=== PATIENT | female | born 1995 | race Hispanic/Latino ===

== ENCOUNTER 2018-02-01 10:55 | Emergency (ER) | payer MEDICAID ==
[2018-02-01] MEDS ORDERED: ONDANSETRON ODT 4 MG TAB ONE (11:09)
[2018-02-01 11:30] LABS: BASOPHILS % (AUTO) 0.3 % (0.0-5.0); EOSINOPHILS % (AUTO) 0.3 % (0.0-8.0); HEMATOCRIT 37.5 % (36-48); LYMPHOCYTES % (AUTO) 12.5 % (21.0-51.0); MEAN CORPUSCULAR HGB CONC 33.4 g/dL (32.0-36.0); MEAN CORPUSCULAR VOLUME 80.8 fL (79-99); MONOCYTES % (AUTO) 3.3 % (3.0-13.0); NEUTROPHILS % (AUTO) 83.6 % (40.0-77.0); PLATELET COUNT (AUTO) 283 K/uL (130-400); RED BLOOD CELL COUNT(AUTO) 4.64 MIL/uL (4.00-5.50); RED CELL DISTRIBUTION WIDTH 15.5 % (11.0-15.5); WHITE BLOOD COUNT (AUTO) 14.4 K/uL (4.8-10.8)
[2018-02-01 11:38] LABS: CREATININE 0.6 mg/dL (0.5-1.5); POTASSIUM 4.4 mmol/L (3.5-5.1)
[2018-02-01 11:43] LABS: ALBUMIN 3.2 g/dL (3.5-5.0); BILIRUBIN,TOTAL 0.4 mg/dL (0.2-1.0); TOTAL PROTEIN, SERUM 7.1 g/dL (6.0-8.3)
[2018-02-01 11:49] LABS: APPEARANCE,URINE Clear (CLEAR); BILIRUBIN,URINE Negative (NEGATIVE); COLOR,URINE Yellow (YELLOW); GLUCOSE, URINE (UA) Negative (NEGATIVE); KETONES,URINE Trace mg/dL (NEGATIVE); LEUKOCYTE ESTERASE ,URINE Trace (NEGATIVE); NITRATE,URINE Negative (NEGATIVE); OCCULT BLOOD,URINE Negative (NEGATIVE); PH,URINE 6.5 (5.0-8.0); PROTEIN,URINE Negative (NEGATIVE)
[2018-02-01 12:02] LABS: HCG,QUAL RESULT NEGATIVE (NEGATIVE); RBC,URINE 0-1 /HPF (0-1)
[2018-02-01 12:03] LABS: BACTERIA,URINE Rare /HPF (None Seen); SQUAMOUS EPITHELIAL CELL,UR Few /HPF (0-2); WBC,URINE 0-1 /HPF (0-1)
== END 2018-02-01 13:52 | disposition home or self-care (01) ==
LOC: EDH 10:55
DX: R35.0 Frequency of micturition (principal); N39.0 Urinary tract infection, site not specified
CPT/HCPCS: 36415; 76705; 80053; 81001; 81025; 83690; 85025

== ENCOUNTER 2018-05-13 21:50 | Emergency (ER) | payer MEDICAID ==
[2018-05-13 22:25] LABS: BASOPHILS % (AUTO) 0.7 % (0.0-5.0); EOSINOPHILS % (AUTO) 0.6 % (0.0-8.0); HEMATOCRIT 42.2 % (36-48); LYMPHOCYTES % (AUTO) 22.6 % (21.0-51.0); MEAN CORPUSCULAR HEMOGLOBIN 25.9 pg (27.0-33.0); MEAN CORPUSCULAR VOLUME 80.9 fL (79-99); MONOCYTES % (AUTO) 5.5 % (3.0-13.0); NEUTROPHILS % (AUTO) 70.6 % (40.0-77.0); PLATELET COUNT (AUTO) 264 K/uL (130-400); RED BLOOD CELL COUNT(AUTO) 5.21 MIL/uL (4.00-5.50); RED CELL DISTRIBUTION WIDTH 15.3 % (11.0-15.5); WHITE BLOOD COUNT (AUTO) 14.8 K/uL (4.8-10.8)
[2018-05-13 22:28] LABS: APPEARANCE,URINE Clear (CLEAR); BILIRUBIN,URINE Negative (NEGATIVE); COLOR,URINE Yellow (YELLOW); GLUCOSE, URINE (UA) Negative (NEGATIVE); KETONES,URINE Negative (NEGATIVE); LEUKOCYTE ESTERASE ,URINE Negative (NEGATIVE); NITRATE,URINE Negative (NEGATIVE); OCCULT BLOOD,URINE Negative (NEGATIVE); PROTEIN,URINE Negative (NEGATIVE)
[2018-05-13 22:32] LABS: HCG,QUAL RESULT NEGATIVE (NEGATIVE)
[2018-05-13 22:35] LABS: CREATININE 0.7 mg/dL (0.5-1.5)
[2018-05-13 22:41] LABS: ALBUMIN 2.9 g/dL (3.5-5.0); BILIRUBIN,TOTAL 0.2 mg/dL (0.2-1.0); TOTAL PROTEIN, SERUM 6.3 g/dL (6.0-8.3)
[2018-05-13] MEDS ORDERED: DiphenhydrAMINE HCL 50 MG/ML VIAL ONE (23:06)
[2018-05-13] MEDS ORDERED: METOCLOPRAMIDE 10 MG/2 ML VIAL ONE (23:06)
[2018-05-13] MEDS ORDERED: SODIUM CHLORIDE 0.9% 50 ML IV ONE (23:06)
[2018-05-13] MEDS ORDERED: ONDANSETRON HCL 4 MG/2 ML VIAL ONE (23:06)
== END 2018-05-13 23:25 | disposition home or self-care (01) ==
LOC: EDH 21:50
DX: K59.00 Constipation, unspecified (principal); Z98.890 Other specified postprocedural states; Z79.899 Other long term (current) drug therapy
CPT/HCPCS: 36415; 80053; 81003; 81025; 82150; 83690; 85025; 96374; 96375; 99284; J1200; J2405; J2765

== ENCOUNTER 2018-05-31 22:43 | Emergency (ER) | payer MEDICAID ==
[2018-05-31] MEDS ORDERED: PROCHLORPERAZINE EDISYLATE 10 MG/2 ML VIAL ONE (23:11)
[2018-05-31] MEDS ORDERED: ONDANSETRON HCL 4 MG/2 ML VIAL ONE (23:11)
[2018-05-31] MEDS ORDERED: SODIUM CHLORIDE 0.9% 1000ML 1,000 ML IV ONE (23:11)
[2018-05-31 23:17] LABS: APPEARANCE,URINE Clear (CLEAR); BILIRUBIN,URINE Negative (NEGATIVE); COLOR,URINE Yellow (YELLOW); GLUCOSE, URINE (UA) Negative (NEGATIVE); KETONES,URINE 15 mg/dL (NEGATIVE); LEUKOCYTE ESTERASE ,URINE Small (NEGATIVE); NITRATE,URINE Negative (NEGATIVE); OCCULT BLOOD,URINE Negative (NEGATIVE); PROTEIN,URINE Negative (NEGATIVE)
[2018-05-31 23:26] LABS: BACTERIA,URINE Moderate /HPF (None Seen); MUCUS,URINE Rare LPF (None Seen); RBC,URINE 0-1 /HPF (0-1)
== END 2018-06-01 00:44 | disposition home or self-care (01) ==
LOC: EDH 22:43
DX: G43.909 Migraine, unspecified, not intractable, without status migrainosus (principal); K21.9 Gastro-esophageal reflux disease without esophagitis
CPT/HCPCS: 81001; 96374; 96375; 99284; J0780; J2405; J7030

== ENCOUNTER 2018-08-08 14:36 | Emergency (ER) | payer MEDICAID ==
[2018-08-08] MEDS ORDERED: FAMOTIDINE 20MG TAB 20 MG TAB ONE (16:53)
[2018-08-08] MEDS ORDERED: PREDNISONE 20 MG TABLET ONE (16:54)
[2018-08-08] MEDS ORDERED: DIPHENHYDRAMINE HCL 25 MG CAPSULE ONE (16:54)
== END 2018-08-08 17:22 | disposition home or self-care (01) ==
LOC: EDH 14:36
DX: L50.0 Allergic urticaria (principal); M79.89 Other specified soft tissue disorders; K21.9 Gastro-esophageal reflux disease without esophagitis; F41.9 Anxiety disorder, unspecified; G43.909 Migraine, unspecified, not intractable, without status migrainosus
CPT/HCPCS: 99284; Q0163

== ENCOUNTER 2018-12-05 14:51 | Emergency (ER) | payer MEDICAID, OTHER ==
[2018-12-05] MEDS ORDERED: ACETAMINOPHEN 325 MG TAB ONE (15:07)
[2018-12-05] MEDS ORDERED: TETANUS/DIPHTHERIA TOXOID [ADULT] 0.5 ML VIAL IM ONE (15:08)
== END 2018-12-05 15:43 | disposition home or self-care (01) ==
LOC: EDH 14:51
DX: S60.811A Abrasion of right wrist, initial encounter (principal); G43.909 Migraine, unspecified, not intractable, without status migrainosus; K21.9 Gastro-esophageal reflux disease without esophagitis; F41.9 Anxiety disorder, unspecified; W22.8XXA Striking against or struck by other objects, initial encounter; Y93.89 Activity, other specified; Y92.098 Other place in other non-institutional residence as the place of occurrence of the external cause; Y99.8 Other external cause status
CPT/HCPCS: 73110; 90471; 90714

== ENCOUNTER 2019-07-16 09:21 | Emergency (ER) | payer MEDICAID ==
[2019-07-16 09:54] LABS: BASOPHILS % (AUTO) 0.4 % (0.0-5.0); EOSINOPHILS % (AUTO) 0.6 % (0.0-8.0); LYMPHOCYTES % (AUTO) 15.6 % (21.0-51.0); MEAN CORPUSCULAR HEMOGLOBIN 28.4 pg (27.0-33.0); MEAN CORPUSCULAR HGB CONC 33.5 g/dL (32.0-36.0); MEAN CORPUSCULAR VOLUME 84.8 fL (79-99); MONOCYTES % (AUTO) 4.8 % (3.0-13.0); NEUTROPHILS % (AUTO) 78.6 % (40.0-77.0); PLATELET COUNT (AUTO) 260 K/uL (130-400); RED BLOOD CELL COUNT(AUTO) 4.25 MIL/uL (4.00-5.50); RED CELL DISTRIBUTION WIDTH 14.8 % (11.0-15.5)
[2019-07-16 10:17] LABS: APPEARANCE,URINE Clear (CLEAR); BILIRUBIN,URINE Negative (NEGATIVE); COLOR,URINE Yellow (YELLOW); GLUCOSE, URINE (UA) Negative (NEGATIVE); KETONES,URINE Trace mg/dL (NEGATIVE); LEUKOCYTE ESTERASE ,URINE Negative (NEGATIVE); NITRATE,URINE Negative (NEGATIVE); OCCULT BLOOD,URINE Large (NEGATIVE); PROTEIN,URINE Negative (NEGATIVE)
[2019-07-16 10:46] LABS: BACTERIA,URINE Rare /HPF (None Seen); RBC,URINE 0-1 /HPF (0-1); SQUAMOUS EPITHELIAL CELL,UR Few /HPF (0-2); WBC,URINE 0-1 /HPF (0-1)
== END 2019-07-16 11:11 | disposition home or self-care (01) ==
LOC: EDH 09:21
DX: O20.0 Threatened abortion (principal); Z3A.16 16 weeks gestation of pregnancy
CPT/HCPCS: 36415; 81001; 85025; 86900; 86901

== ENCOUNTER 2019-12-07 11:28 | Inpatient (IN) | payer MEDICAID ==
[2019-12-07] VITALS (9 sets, daily range): BP systolic 114–127; BP diastolic 57–73
[~2019-12-07] VITALS: Ht 160 cm; Wt 129.3 kg
[2019-12-07] MEDS ORDERED: CEFAZOLIN SODIUM 1 GM VIAL IVP PRN (12:15)
[2019-12-07] MEDS ORDERED: CITRIC ACID/SODIUM CITRATE 30 ML UDCUP PO PRN (12:15)
[2019-12-07] MEDS ORDERED: CALDOLOR 800MG+NS 250ML 250 ML IV PRN (12:15)
[2019-12-07] MEDS ORDERED: LACTATED RINGERS 1000ML 1,000 ML IV SCH ×2 (12:15→13:19)
[2019-12-07 12:43] LABS: HEMATOCRIT 36.5 % (36-48); MEAN CORPUSCULAR HGB CONC 32.6 g/dL (32.0-36.0); MEAN CORPUSCULAR VOLUME 88.8 fL (79-99); RED BLOOD CELL COUNT(AUTO) 4.11 MIL/uL (4.00-5.50); RED CELL DISTRIBUTION WIDTH 14.5 % (11.0-15.5); WHITE BLOOD COUNT (AUTO) 11.8 K/uL (4.8-10.8)
[2019-12-07 12:54] LABS: CREATININE 0.7 mg/dL (0.5-1.5); INR 0.84 (0.85-1.15); PARTIAL THROMBOPLASTIN TIME 23.9 SEC (26.3-35.5); POTASSIUM 3.9 mmol/L (3.5-5.1); PROTHROMBIN TIME 9.1 SEC (9.6-11.6)
[2019-12-07 12:59] LABS: ALBUMIN 2.5 g/dL (3.5-5.0); BILIRUBIN,TOTAL 0.1 mg/dL (0.2-1.0); TOTAL PROTEIN, SERUM 6.4 g/dL (6.0-8.3); URIC ACID 6.7 mg/dL (2.6-7.2)
[2019-12-07] MEDS ORDERED: MAGNESIUM SULFATE 1,000 ML IV PRN ×2 (13:19→17:21)
[2019-12-07] MEDS ORDERED: CALCIUM GLUCONATE 1 GM/10 ML VIAL IV PRN ×2 (13:30→17:30)
[2019-12-07] MEDS ORDERED: MAGNESIUM 4GM PREMIX 100ML 100 ML IV PRN ×2 (13:30→17:30)
[2019-12-07 14:28] LABS: APPEARANCE,URINE Clear (CLEAR); BILIRUBIN,URINE Negative (NEGATIVE); COLOR,URINE Yellow (YELLOW); GLUCOSE, URINE (UA) Negative (NEGATIVE); KETONES,URINE Negative (NEGATIVE); LEUKOCYTE ESTERASE ,URINE Negative (NEGATIVE); NITRATE,URINE Negative (NEGATIVE); OCCULT BLOOD,URINE Negative (NEGATIVE); PH,URINE 6.5 (5.0-8.0); PROTEIN,URINE Trace mg/dL (NEGATIVE); UROBILINOGEN,URINE 0.2 mg/dL (0.2-1.0)
[2019-12-07 14:35] LABS: RBC,URINE 0-1 /HPF (0-1)
[2019-12-07 14:43] LABS: BACTERIA,URINE Few /HPF (None Seen)
[2019-12-07 14:44] LABS: MUCUS,URINE Few LPF (None Seen); SQUAMOUS EPITHELIAL CELL,UR Few /HPF (0-2)
[2019-12-07] MEDS ORDERED: OXYTOCIN 10 USP UNITS/ML ONE (15:25)
[2019-12-07] MEDS ORDERED: DURAMORPH PF1 MG/ML 10ML AMP IV ONE (15:26)
[2019-12-07] MEDS ORDERED: EPINEPHRINE 1 MG/ML AMPULE ONE (15:26)
[2019-12-07] MEDS ORDERED: PROPOFOL 10 MG/ML 20ML VIAL IV ONE (15:32)
[2019-12-07] MEDS ORDERED: CEFAZOLIN SODIUM 1 GM VIAL IVP ONE (16:18)
[2019-12-07] MEDS ORDERED: EPHEDRINE SULFATE 50 MG/ML AMPULE ONE (16:28)
[2019-12-07] MEDS ORDERED: GLYCOPYRROLATE 1 MG/5 ML SYRINGE ONE (16:33)
[2019-12-07] MEDS: LACTATED RINGERS 1000ML 1,000 ML IV SCH (17:21)
[2019-12-07] MEDS ORDERED: ONDANSETRON HCL 4 MG/2 ML VIAL ONE (17:27)
[2019-12-07] MEDS ORDERED: OXYTOCIN 10 USP UNITS/ML IV PRN (17:30)
[2019-12-07] MEDS ORDERED: PROMETHAZINE HCL 25 MG/ML 1ML AMPULE IM PRN (17:30)
[2019-12-07] MEDS ORDERED: MEPERIDINE-PF 75 MG/ML SYG IM PRN (17:30)
[2019-12-07] MEDS ORDERED: OXYTOCIN-LR 20 UNITS/1000 ML 1,000 ML IV PRN (17:30)
[2019-12-07] MEDS ORDERED: SODIUM CHLORIDE 0.9% 10 ML VIAL IVP PRN (17:30)
[2019-12-07] MEDS ORDERED: DEXTROSE 5 %-0.45 % NACL 1,000 ML IV PRN (17:30)
[2019-12-07] MEDS ORDERED: EPHEDRINE SULFATE 50 MG/ML AMPULE IVP PRN (18:45)
[2019-12-07] MEDS ORDERED: ONDANSETRON HCL 4 MG/2 ML VIAL IVP PRN (18:45)
[2019-12-07] MEDS ORDERED: DiphenhydrAMINE HCL 50 MG/ML VIAL IVP PRN (18:45)
[2019-12-07] MEDS ORDERED: NALOXONE HCL 0.4 MG/1 ML ML IVP PRN ×3 (18:45)
[2019-12-08] VITALS (25 sets, daily range): BP systolic 111–132; BP diastolic 58–92
[2019-12-08] MEDS: CALDOLOR 800MG+NS 250ML 250 ML IV SCH ×2 (01:26→09:24)
[2019-12-08] MEDS ORDERED: PREN-154 PO (03:27)
[2019-12-08] MEDS: LACTATED RINGERS 1000ML 1,000 ML IV SCH (05:00)
[2019-12-08 06:30] LABS: HEMATOCRIT 32.2 % (36-48); MEAN CORPUSCULAR HEMOGLOBIN 28.8 pg (27.0-33.0); MEAN CORPUSCULAR HGB CONC 32.3 g/dL (32.0-36.0); MEAN CORPUSCULAR VOLUME 89.2 fL (79-99); RED BLOOD CELL COUNT(AUTO) 3.61 MIL/uL (4.00-5.50); RED CELL DISTRIBUTION WIDTH 14.7 % (11.0-15.5); WHITE BLOOD COUNT (AUTO) 12.1 K/uL (4.8-10.8)
[2019-12-08] MEDS ORDERED: MEPERIDINE-PF 100 MG/ML SYG ONE (08:07)
[2019-12-08 08:10] LABS: HEPATITIS Bs ANTIGEN SCREEN P Negative (Negative)
--- NOTE | 2019-12-08 09:45 | NUR ---
magnesium sulfate discontinued as per MD order, hodges catheter removed, tip intact, pericare done, incisional dressing removed, applied telfa dressing, informed to call for assistance to the bathroom, pt voiced understanding. Addendum: 12/08/19 at 1106 by MARA GERBER RN Amended: Links added.
[2019-12-08] MEDS ORDERED: IBUPROFEN 600 MG TABLET PO PRN (10:15)
[2019-12-08] MEDS ORDERED: LANOLIN 30GM OINTMENT TP PRN (10:15)
[2019-12-08] MEDS ORDERED: HYDROCODONE/ACETAMINOPHEN 5/325 MG TAB PO PRN (10:15)
[2019-12-08] MEDS ORDERED: ACETAMINOPHEN EXTRA STRENGTH 500 MG TABLET PO PRN (10:15)
[2019-12-08] MEDS ORDERED: BISACODYL 10 MG SUPP.RECT RC PRN (10:15)
--- NOTE | 2019-12-08 13:15 | NUR ---
assisted to the bathroom, voided 500ml, pericare done, assisted to bedside chair. pt tolerated well Addendum: 12/08/19 at 1516 by MARA GERBER RN Amended: Links added.
[2019-12-08] MEDS: SIMETHICONE 80 MG TAB.CHEW PO PRN ×2 (14:53→21:03)
[2019-12-08] MEDS: ACETAMINOPHEN-CODEINE 300/30MG TAB PO PRN ×2 (14:53→21:04)
[2019-12-08] MEDS: DIPH,PERTUSS(ACELL),TET VAC/PF 0.5 ML VIAL IM SCH (16:57)
[2019-12-08] MEDS: IBUPROFEN 800 MG TAB PO SCH (17:40)
[2019-12-08] MEDS: DOCUSATE SODIUM 100 MG CAP PO SCH (21:03)
[2019-12-09] MEDS: IBUPROFEN 800 MG TAB PO SCH ×2 (01:29→08:48)
[2019-12-09 04:09] VITALS: BP 121/67
[2019-12-09] MEDS: ACETAMINOPHEN-CODEINE 300/30MG TAB PO PRN ×2 (06:45→15:06)
[2019-12-09 07:36] VITALS: BP 137/70
--- NOTE | 2019-12-09 07:45 | NUR ---
PATIENT ASSESSED AND INCISION IS OPEN TO AIR WITH INSORB. DENIES PAIN AND HAS DTRS OF 1+ ARMS AND 1+ LEGS AND NO CLONUS. DENIES ANY SIGNS AND SYMPTOMS OF ECLAMPSIA.
[2019-12-09] MEDS: SIMETHICONE 80 MG TAB.CHEW PO PRN ×2 (08:48→15:05)
[2019-12-09] MEDS: DOCUSATE SODIUM 100 MG CAP PO SCH (08:48)
[2019-12-09] MEDS: DIPH,PERTUSS(ACELL),TET VAC/PF 0.5 ML VIAL IM SCH (10:15)
--- NOTE | 2019-12-09 10:30 | NUR ---
DR. POLLACK ROUNDED AND DISCHARGE ORDER GIVEN FOR PATIENT. PATIENT IS STABLE AND DENIES ANY PROBLEMS. SIGNS AND SYMPTOMS FOR ER GIVEN AND PATEINT VERBALIZED UNDERSTANDING INSTRUCTIONS GIVEN.
[2019-12-09 11:20] VITALS: BP 126/88
--- NOTE | 2019-12-09 12:33 | NUR ---
LEVEL II- 35 weeks Sw met with pt and mother Christi Luevano [phone]. Pt reports this is 4 child with her BF Huseyin Pedroza ([phone], no cell#. Couple's kids are 6,4,3, and NB Lupe Pedroza. Pt states baby came earlier than expected but they have basic items including a car seat of NB. HPA will follow baby after dc and pt will have help from family at de. Pt has medicaid and food stamp assistance and will apply for WIC at de. Pt states [place] come [place] [facility] [place] baby ready for dc. Sw educated on Jamil Hernandez and pt states plan is to go home and come to see baby.
--- NOTE | 2019-12-09 15:00 | NUR ---
DISCHARGE INSTRUCTIONS GIVEN AND PT VERBALIZED UNDERSTANDING INSTRUCTIONS GIVEN. MEDICATION REVIEWED AND DOSAGE AND FREQUENCY REVIEWED AND INSTRUCTED WHEN NEXT DOSAGE IS DUE.
--- NOTE | 2019-12-09 16:10 | NUR ---
PATIENT WAS TAKEN VIA W/C TO FAMILY VEHICLE AND WAS DISCHARGED TO HOME. PATIENT CARRIED IN ARMS AND PATIENT DENIES PAIN AFTER MEDICATED WITH TYLENOL #3 PRIOR TO DISCHARE.
== END 2019-12-09 16:10 | disposition home or self-care (01) | DRG 539 ==
LOC: LDH 11:28 → WSH 20:19
PROVIDERS: ADMIT Obstetrics & Gynecology; ATTEND Obstetrics & Gynecology
PROC: 0UB70ZZ Excision of Bilateral Fallopian Tubes, Open Approach (ICD-10-PCS; 2019-12-07)
PROC: 10D00Z1 Extraction of Products of Conception, Low, Open Approach (ICD-10-PCS; principal; 2019-12-07 16:15)
PROC: 3E0234Z Introduction of Serum, Toxoid and Vaccine into Muscle, Percutaneous Approach (ICD-10-PCS; 2019-12-08)
DX: O14.04 Mild to moderate pre-eclampsia, complicating childbirth (principal); O60.14X0 Preterm labor third trimester with preterm delivery third trimester, not applicable or unspecified; E66.9 Obesity, unspecified; K66.0 Peritoneal adhesions (postprocedural) (postinfection); O99.214 Obesity complicating childbirth; O34.211 Maternal care for low transverse scar from previous cesarean delivery; Z30.2 Encounter for sterilization; Z3A.36 36 weeks gestation of pregnancy; Z37.0 Single live birth; O99.62 Diseases of the digestive system complicating childbirth; Z23 Encounter for immunization; O24.420 Gestational diabetes mellitus in childbirth, diet controlled
CPT/HCPCS: 36415; 59510; 80053; 81001; 84550; 85027; 85384; 85610; 85730; 86592; 86701; 86850; 86900; 86901; 87340; 87390; 88302; 90715; A4344; G0378; J0171; J0690; J1741; J2175; J2274; J2405; J2550; J2590; J2704; J3475; J3490; J7120

== ENCOUNTER 2019-12-15 14:16 | Emergency (ER) | payer MEDICAID ==
[~2019-12-15 14:16] MED LIST: PREN-154 PO
[2019-12-15 15:12] LABS: BASOPHILS % (AUTO) 0.5 % (0.0-5.0); EOSINOPHILS % (AUTO) 3.1 % (0.0-8.0); HEMATOCRIT 34.7 % (36-48); LYMPHOCYTES % (AUTO) 16.3 % (21.0-51.0); MEAN CORPUSCULAR HEMOGLOBIN 28.4 pg (27.0-33.0); MEAN CORPUSCULAR VOLUME 88.7 fL (79-99); MONOCYTES % (AUTO) 5.4 % (3.0-13.0); NEUTROPHILS % (AUTO) 73.5 % (40.0-77.0); PLATELET COUNT (AUTO) 474 K/uL (130-400); RED BLOOD CELL COUNT(AUTO) 3.91 MIL/uL (4.00-5.50); RED CELL DISTRIBUTION WIDTH 14.3 % (11.0-15.5); WHITE BLOOD COUNT (AUTO) 11.8 K/uL (4.8-10.8)
[2019-12-15 15:28] LABS: CREATININE 0.6 mg/dL (0.5-1.5); POTASSIUM 4.2 mmol/L (3.5-5.1)
[2019-12-15 15:32] LABS: BILIRUBIN,TOTAL 0.2 mg/dL (0.2-1.0); MAGNESIUM 1.9 mg/dL (1.80-2.40); TOTAL PROTEIN, SERUM 7.5 g/dL (6.0-8.3)
[2019-12-15 15:44] LABS: INR 0.89 (0.85-1.15); PARTIAL THROMBOPLASTIN TIME 24.4 SEC (26.3-35.5); PROTHROMBIN TIME 9.7 SEC (9.6-11.6)
[2019-12-15 16:00] LABS: APPEARANCE,URINE CLOUDY (CLEAR); BILIRUBIN,URINE NEGATIVE (NEGATIVE); COLOR,URINE YELLOW (YELLOW); GLUCOSE, URINE (UA) NEGATIVE (NEGATIVE); KETONES,URINE NEGATIVE (NEGATIVE); LEUKOCYTE ESTERASE ,URINE SMALL (NEGATIVE); NITRATE,URINE NEGATIVE (NEGATIVE); OCCULT BLOOD,URINE LARGE (NEGATIVE); PH,URINE 7.5 (5.0-8.0); PROTEIN,URINE TRACE mg/dL (NEGATIVE); UROBILINOGEN,URINE 0.2 mg/dL (0.2-1.0)
[2019-12-15 16:10] LABS: RBC,URINE 26-50 /HPF (0-1)
[2019-12-15 16:11] LABS: BACTERIA,URINE Few /HPF (None Seen); SQUAMOUS EPITHELIAL CELL,UR Few /HPF (0-2); YEAST,URINE BUDDING Rare /HPF (None Seen)
[2019-12-15] MEDS ORDERED: METOCLOPRAMIDE 10 MG/2 ML VIAL ONE (17:15)
[2019-12-15] MEDS ORDERED: DiphenhydrAMINE HCL 50 MG/ML VIAL ONE (17:15)
[2019-12-15] MEDS ORDERED: CEPHALEXIN 500 MG CAPSULE ONE (18:16)
== END 2019-12-15 18:53 | disposition home or self-care (01) ==
LOC: EDH 14:16
DX: O86.20 Urinary tract infection following delivery, unspecified (principal); O89.4 Spinal and epidural anesthesia-induced headache during the puerperium; G43.909 Migraine, unspecified, not intractable, without status migrainosus; F41.9 Anxiety disorder, unspecified; K21.9 Gastro-esophageal reflux disease without esophagitis
CPT/HCPCS: 36415; 70450; 72125; 80053; 81001; 83735; 85025; 85610; 85730; 87088; 96374; 96375; 99285; J1200; J2765

== ENCOUNTER 2021-03-20 18:40 | Emergency (ER) | payer MEDICAID ==
[~2021-03-20] VITALS: Ht 157.5 cm; Wt 123.8 kg
[2021-03-20 18:42] VITALS: BP 143/96
== END 2021-03-20 23:40 | disposition left against medical advice (07) ==
LOC: EDH 18:40
DX: R05 Cough (principal); R53.83 Other fatigue; Z53.21 Procedure and treatment not carried out due to patient leaving prior to being seen by health care provider

== ENCOUNTER 2021-08-26 22:35 | Emergency (ER) | payer MEDICAID ==
[~2021-08-26] VITALS: Ht 157.5 cm; Wt 122.5 kg
[2021-08-27] MEDS ORDERED: IBUPROFEN 800 MG TAB PO ONE (04:00)
[2021-08-27 04:03] VITALS: BP 118/68
== END 2021-08-27 04:00 | disposition home or self-care (01) ==
LOC: EDH 22:35
DX: S67.22XA Crushing injury of left hand, initial encounter (principal); S60.222A Contusion of left hand, initial encounter; W23.0XXA Caught, crushed, jammed, or pinched between moving objects, initial encounter; Y93.89 Activity, other specified; Y92.89 Other specified places as the place of occurrence of the external cause; Y99.8 Other external cause status
CPT/HCPCS: 73130

== ENCOUNTER 2022-08-25 00:37 | Emergency (ER) | payer MEDICAID ==
[~2022-08-25] VITALS: Ht 160 cm; Wt 112.5 kg
[2022-08-25 01:07] LABS: APPEARANCE,URINE CLEAR (CLEAR); BILIRUBIN,URINE NEGATIVE (NEGATIVE); COLOR,URINE LIGHT-YELLOW (YELLOW); GLUCOSE, URINE (UA) 30 mg/dL (NEGATIVE); KETONES,URINE NEGATIVE (NEGATIVE); LEUKOCYTE ESTERASE ,URINE NEGATIVE Leu/uL (NEGATIVE); NITRATE,URINE NEGATIVE (NEGATIVE); OCCULT BLOOD,URINE LARGE (NEGATIVE); PH,URINE 5.5 (5.0-8.0); PROTEIN,URINE NEGATIVE (NEGATIVE); UROBILINOGEN,URINE 0.2 mg/dL (0.2-1.0)
[2022-08-25 01:08] LABS: HCG,QUALITATIVE URINE NEGATIVE (NEGATIVE)
[2022-08-25 01:12] LABS: BASOPHILS % (AUTO) 0.4 % (0.0-5.0); EOSINOPHILS % (AUTO) 2.9 % (0.0-8.0); HEMATOCRIT 38.5 % (36-48); LYMPHOCYTES % (AUTO) 20.8 % (21.0-51.0); MEAN CORPUSCULAR HEMOGLOBIN 25.8 pg (27.0-33.0); MEAN CORPUSCULAR HGB CONC 31.4 g/dL (32.0-36.0); MEAN CORPUSCULAR VOLUME 82.1 fL (79-99); MONOCYTES % (AUTO) 3.8 % (3.0-13.0); NEUTROPHILS % (AUTO) 71.6 % (40.0-77.0); PLATELET COUNT (AUTO) 361 K/uL (130-400); RED BLOOD CELL COUNT(AUTO) 4.69 MIL/uL (4.00-5.50); RED CELL DISTRIBUTION WIDTH 14.5 % (11.0-15.5); WHITE BLOOD COUNT (AUTO) 11.5 K/uL (4.8-10.8)
[2022-08-25 01:19] LABS: BACTERIA,URINE RARE /HPF (None Seen); MUCUS,URINE RARE LPF (None Seen); RBC,URINE TNTC /HPF (0-1); SQUAMOUS EPITHELIAL CELL,UR FEW /HPF (0-2)
[2022-08-25 01:23] LABS: CREATININE 0.5 mg/dL (0.5-1.5); POTASSIUM 3.8 mmol/L (3.5-5.1)
[2022-08-25 01:27] LABS: ALBUMIN 3.5 g/dL (3.5-5.0); TOTAL PROTEIN, SERUM 7.9 g/dL (6.0-8.3)
[2022-08-25] MEDS ORDERED: ONDANSETRON 4MG INJ IVP ONE (02:30)
[2022-08-25] MEDS ORDERED: IBUP-2070 PO (03:29)
[2022-08-25] MEDS ORDERED: ONDA4TAB10 PO (03:29)
[2022-08-25 03:36] VITALS: BP 139/87
== END 2022-08-25 03:42 | disposition home or self-care (01) ==
LOC: EDH 00:37
DX: N92.1 Excessive and frequent menstruation with irregular cycle (principal); R11.0 Nausea
CPT/HCPCS: 99283; 96374; 80053; 85025; 81001; 81025; 36415; J2405

== ENCOUNTER 2023-12-30 11:53 | Emergency (ER) | payer MEDICAID, OTHER ==
[~2023-12-30] VITALS: Ht 157.5 cm; Wt 113.4 kg
[~2023-12-30 11:53] MED LIST changes: +IBUP-2070 PO; +ONDA4TAB10 PO
[2023-12-30 12:15] LABS: BASOPHILS # (AUTO) 0.06 K/uL (0.00-0.20); BASOPHILS % (AUTO) 0.5 % (0.0-5.0); EOSINOPHILS # (AUTO) 0.12 K/uL (0.00-0.70); EOSINOPHILS % (AUTO) 0.9 % (0.0-8.0); HEMATOCRIT 39.7 % (36-48); IMMATURE GRANULOCYTE ABSOLUTE 0.07 K/uL (0-1); LYMPHOCYTES # (AUTO) 3.2 K/uL (1.0-4.8); LYMPHOCYTES % (AUTO) 24.1 % (21.0-51.0); MEAN CORPUSCULAR HGB CONC 32.7 g/dL (32.0-36.0); MEAN CORPUSCULAR VOLUME 79.4 fL (79-99); MONOCYTES # (AUTO) 0.5 K/uL (0.1-1.0); NEUTROPHILS # (AUTO) 9.3 K/uL (1.8-7.7); PLATELET COUNT (AUTO) 353 K/uL (130-400); RED CELL DISTRIBUTION WIDTH 14.5 % (11.0-15.5); WHITE BLOOD COUNT (AUTO) 13.3 K/uL (4.8-10.8)
[2023-12-30 12:26] LABS: CREATININE 0.6 mg/dL (0.5-1.0); POTASSIUM 3.9 mmol/L (3.5-5.1)
[2023-12-30 12:30] LABS: ALBUMIN 3.4 g/dL (3.5-5.0); BILIRUBIN,TOTAL 0.5 mg/dL (0.2-1.0); TOTAL PROTEIN, SERUM 7.8 g/dL (6.0-8.3)
[2023-12-30 12:36] LABS: APPEARANCE,URINE CLEAR (CLEAR); BILIRUBIN,URINE NEGATIVE (NEGATIVE); COLOR,URINE YELLOW (YELLOW); GLUCOSE, URINE (UA) NEGATIVE (NEGATIVE); KETONES,URINE 10 mg/dL (NEGATIVE); LEUKOCYTE ESTERASE ,URINE 25 Leu/uL (NEGATIVE); NITRATE,URINE NEGATIVE (NEGATIVE); OCCULT BLOOD,URINE NEGATIVE (NEGATIVE); PH,URINE 7.5 (5.0-8.0); PROTEIN,URINE 10 mg/dL (NEGATIVE); UROBILINOGEN,URINE 0.2 mg/dL (0.2-1.0)
[2023-12-30 12:41] LABS: ADD UA MICROSCOPIC YES
[2023-12-30 12:46] LABS: MUCUS,URINE RARE LPF (None Seen); SQUAMOUS EPITHELIAL CELL,UR FEW /HPF (0-2)
[2023-12-30] MEDS: ONDANSETRON 4MG INJ IVP ONE (12:47)
[2023-12-30] MEDS: 0.9%NACL 1000ML 1,000 ML IV ONE (12:47)
[2023-12-30] MEDS: MORPHINE 2 MG SYG IVP ONE (12:51)
[2023-12-30] MEDS ORDERED: CEFU500T67 PO (14:31)
[2023-12-30] MEDS ORDERED: KETO10TA2 PO (14:31)
[2023-12-30] MEDS: CEFTRIAXONE 1G VIAL IVPB ONE (14:41)
[2023-12-30 14:54] VITALS: BP 135/72; PULSE 80; RESP 18; O2SAT 99
== END 2023-12-30 15:02 | disposition home or self-care (01) ==
LOC: EDH 11:53
DX: N39.0 Urinary tract infection, site not specified (principal); Z98.51 Tubal ligation status
CPT/HCPCS: 99285; 74176; 96374; 96361; 96375; 80053; 83690; 85025; 87040 ×2; 87088; 83605; 81001; 36415; 93005; J2270; J7030; J0696; J2405

== ENCOUNTER 2025-01-01 16:36 | Emergency (ER) | payer SELFPAY ==
[~2025-01-01] VITALS: Ht 157.5 cm; Wt 90.7 kg
[~2025-01-01 16:36] MED LIST changes: +CEFU500T67 PO; +KETO10TA2 PO; +ONDA-243 PO; -ONDA4TAB10 PO
[2025-01-01 17:05] LABS: BASOPHILS # (AUTO) 0.04 K/uL (0.00-0.20); BASOPHILS % (AUTO) 0.4 % (0.0-5.0); EOSINOPHILS % (AUTO) 1.1 % (0.0-8.0); HEMATOCRIT 37.5 % (36-48); IMMATURE GRANULOCYTE ABSOLUTE 0.05 K/uL (0-1); LYMPHOCYTES # (AUTO) 2.1 K/uL (1.0-4.8); LYMPHOCYTES % (AUTO) 22.7 % (21.0-51.0); MEAN CORPUSCULAR HEMOGLOBIN 26.1 pg (27.0-33.0); MEAN CORPUSCULAR HGB CONC 32.5 g/dL (32.0-36.0); MEAN CORPUSCULAR VOLUME 80.1 fL (79-99); MONOCYTES # (AUTO) 0.4 K/uL (0.1-1.0); MONOCYTES % (AUTO) 4.6 % (3.0-13.0); NEUTROPHILS # (AUTO) 6.7 K/uL (1.8-7.7); NEUTROPHILS % (AUTO) 70.7 % (40.0-77.0); PLATELET COUNT (AUTO) 311 K/uL (130-400); RED BLOOD CELL COUNT(AUTO) 4.68 MIL/uL (4.00-5.50); RED CELL DISTRIBUTION WIDTH 14.3 % (11.0-15.5); WHITE BLOOD COUNT (AUTO) 9.4 K/uL (4.8-10.8)
[2025-01-01 17:08] LABS: HCG,QUALITATIVE URINE NEGATIVE (NEGATIVE)
[2025-01-01 17:12] LABS: ADD UA MICROSCOPIC YES; APPEARANCE,URINE CLEAR (CLEAR); BILIRUBIN,URINE NEGATIVE (NEGATIVE); COLOR,URINE LIGHT-YELLOW (YELLOW); GLUCOSE, URINE (UA) >=1000 mg/dL (NEGATIVE); KETONES,URINE 10 mg/dL (NEGATIVE); LEUKOCYTE ESTERASE ,URINE NEGATIVE Leu/uL (NEGATIVE); NITRATE,URINE NEGATIVE (NEGATIVE); PROTEIN,URINE NEGATIVE (NEGATIVE); UROBILINOGEN,URINE 0.2 mg/dL (0.2-1.0)
[2025-01-01 17:14] LABS: BACTERIA,URINE RARE /HPF (None Seen); MUCUS,URINE RARE LPF (None Seen); RBC,URINE 0-1 /HPF (0-1); SQUAMOUS EPITHELIAL CELL,UR MOD /HPF (0-2)
[2025-01-01 17:18] LABS: CREATININE 0.6 mg/dL (0.5-1.0)
[2025-01-01 17:23] LABS: ALBUMIN 3.1 g/dL (3.5-5.0); BILIRUBIN,DIRECT 0.1 mg/dL (0.0-0.3); BILIRUBIN,TOTAL 0.3 mg/dL (0.2-1.0); TOTAL PROTEIN, SERUM 7.1 g/dL (6.0-8.3)
[2025-01-01] MEDS: cefTRIAXone 1G VIAL IVPB ONE (17:32)
[2025-01-01] MEDS: AZITHROMYCIN 250 MG TABLET PO ONE (17:34)
[2025-01-01 18:09] VITALS: BP 152/91; PULSE 84; RESP 16; TEMP 98.2; O2SAT 97
[2025-01-01] MEDS ORDERED: DOXY-466 PO (18:32)
--- NOTE | 2025-01-01 18:32 | ERN ---
ED Note History of Present Illness Stated Complaint: ABDOMINAL PAIN Chief Complaint: Pelvic Pain Time Seen by MD: 16:42 Dictation: 29-year-old female presenting to the emergency department with pelvic discharge over the past few days patient reports foul-smelling and no abdominal pain nausea or vomiting. Patient had a headache as well. High blood pressure and home but she says she does not not check it often. Non diagnosed. Allergies: Coded Allergies: No Known Drug Allergies (Verified Allergy, 04/20/13) Home Meds Active Scripts Ketorolac Tromethamine (Ketorolac Tromethamine) 10 Mg Tablet, 10 MG PO Q6HPRN PRN for PAIN for 7 Days, #28 TAB Prov:INOCENCIA MACHUCA DO 12/30/23 Cefuroxime Axetil (Cefuroxime) 500 Mg Tablet, 500 MG PO BID for 7 Days, #14 TAB Prov:INOCENCIA MACHUCA DO 12/30/23 Ondansetron (Ondansetron Odt) 4 Mg Tab.rapdis, 4 MG PO Q6HPRN for 2 Days, #6 TAB Prov:HILL COATS MD 08/25/22 Ibuprofen (Ibuprofen) 600 Mg Tablet, 600 MG PO Q8H PRN for PAIN for 10 Days, #30 TAB Prov:HILL COATS MD 08/25/22 Reported Medications Vits #93/Iron Fum/FA ( Formula Tablet) 1 Each Tablet, 1 EACH PO DAILY, TAB 12/08/19 Past Medical History Past Medical History: No Pertinent History, Ovarian Cyst Surgical History: BTL, Social History: Other LMP: December 12, 2024 : 4 Para: 4 Aborts: 0 Review of System Dictation Constitutional: Negative for fever,chills, and weight loss Eyes: Negative for injury, pain,redness, and discharge ENT: Negative for injury,pain or swelling Cardiovascular: Negative for chest pain, palpitations, and edema Respiratory: Negative for shortness of breath, cough, and wheezing, Abdomen/GI: Negative for abdominal pain, nausea, vomiting, diarrhea, and constipation Back: Negative for injury and pain : Per HPI MS/Extremity: Negative for injury and deformity Skin: Negative for rash, and discoloration Neuro: Per HPI Psych: Negative for suicide ideation, homicidal ideation, and hallucinations Initial Vital Sign VS Vital Signs Date Time Temp Pulse Resp B/P (MAP) Pulse Ox O2 Delivery O2 Flow Rate FiO2 01/01/25 16:38 99.0 90 16 168/90 97 0 01/01/25 16:38 Room Air* 21 Physical Exam Dictation General: awake, alert, NAD Head/Face: Normocephalic, atraumatic Eyes: PERRL, EOMI, vision at baseline ENT: oral cavity clear, TMs clear, no signs of infection Neck: Trachea midline, supple, no nuchal rigidity Cardiovascular: RRR, normal S1/S2, No MRGs, no JVD Respiratory: CTAB, no respiratory distress, No rales or wheezes Abdomen: Soft, non-tender, non-distended, normal bowel sounds, no guarding or rebound. Skin: Warm, dry, normal turgor, no rash MS/Extremity: Pulses equal, no cyanosis, neurovascular intact, FROM Neuro: COAx4, GCS 15, strength 5/5, CN 2-12 intact, normal cerebellar exam, normal gait, Psych: Normal behavior, mood, and affect normal Results (Laboratory/Radiology) Laboratory/Radiology Laboratory Tests Test 01/01/25 16:08 01/01/25 16:58 Urine Color LIGHT-YELLOW (YELLOW) Urine Appearance CLEAR (CLEAR) Urine pH 6.0 (5.0-8.0) Urine Specific [place] 1.034 (1.001-1.031) Urine Protein NEGATIVE mg/dL (NEGATIVE) Urine Glucose (UA) >=1000 mg/dL (NEGATIVE) H Urine Ketones 10 mg/dL (NEGATIVE) H Urine Occult Blood +- (TRACE) (NEGATIVE) H Urine Nitrate NEGATIVE (NEGATIVE) Urine Bilirubin NEGATIVE mg/dL (NEGATIVE) Urine Urobilinogen 0.2 mg/dL (0.2-1.0) Urine Leukocyte Esterase NEGATIVE Cady/uL Urine RBC 0-1 /HPF (0-1) Urine WBC 2-5 /HPF (0-1) H Urine Squamous Epithelial Cells MOD /HPF (0-2) Urine Bacteria RARE /HPF (None Seen) Urine HCG, Qualitative NEGATIVE (NEGATIVE) White Blood Count 9.4 K/uL (4.8-10.8) Red Blood Count 4.68 MIL/uL (4.00-5.50) Hemoglobin 12.2 g/dL (12.0-16.0) Hematocrit 37.5 % (36-48) Mean Corpuscular Volume 80.1 fL (79-99) Mean Corpuscular Hemoglobin 26.1 pg (27.0-33.0) L Mean Corpuscular Hemoglobin Concent 32.5 g/dL (32.0-36.0) Red Cell Distribution Width 14.3 % (11.0-15.5) Platelet Count 311 K/uL (130-400) Mean Platelet Volume 10.9 fL (7.5-10.5) H Immature Granulocyte % (Auto) 0.5 % (0-1) Neutrophils (%) (Auto) 70.7 % (40.0-77.0) Lymphocytes (%) (Auto) 22.7 % (21.0-51.0) Monocytes (%) (Auto) 4.6 % (3.0-13.0) Eosinophils (%) (Auto) 1.1 % (0.0-8.0) Basophils (%) (Auto) 0.4 % (0.0-5.0) Neutrophils # (Auto) 6.7 K/uL (1.8-7.7) Lymphocytes # (Auto) 2.1 K/uL (1.0-4.8) Monocytes # (Auto) 0.4 K/uL (0.1-1.0) Eosinophils # (Auto) 0.10 K/uL (0.00-0.70) Basophils # (Auto) 0.04 K/uL (0.00-0.20) Absolute Immature Granulocyte (auto 0.05 K/uL (0-1) Nucleated Red Blood Cells 0.0 % (0.0-0.19) Sodium Level 140 mmol/L (136-145) Potassium Level 4.0 mmol/L (3.5-5.1) Chloride Level 101 mmol/L (101-111) Carbon Dioxide Level 32 mmol/L (21-32) Blood Urea Nitrogen 10 mg/dL (7-18) Creatinine 0.6 mg/dL (0.5-1.0) Glomerular Filtration Rate Calc 124 mL/min (>90) Random Glucose 349 mg/dL (70-105) H Total Calcium 8.9 mg/dL (8.5-10.1) Total Bilirubin 0.3 mg/dL (0.2-1.0) Direct Bilirubin 0.1 mg/dL (0.0-0.3) Aspartate Amino Transf (AST/SGOT) 52 U/L (10-37) H Alanine Aminotransferase (ALT/SGPT) 49 U/L (12-78) Alkaline Phosphatase 127 U/L (50-136) Total Protein 7.1 g/dL (6.0-8.3) Albumin 3.1 g/dL (3.5-5.0) L Lipase 33 U/L (16-77) Labs Reviewed?: Yes ED Course ED Course Orders Procedure Category Date Status Time Basic Metabolic Panel LAB 01/01/25 Complete 16:42 Cbc With Differential LAB 01/01/25 Complete 16:42 Hepatic Function Panel LAB 01/01/25 Complete 16:42 Lipase LAB 01/01/25 Complete 16:42 ,Urine Test LAB 01/01/25 Complete 16:42 Urinalysis Profile LAB 01/01/25 Complete 16:42 Chlamydia & Gc Pcr VINCENT 01/01/25 Logged 17:21 Azithromycin PHA 01/01/25 Complete (Zithromax) 17:30 Ceftriaxone 1g Vial PHA 01/01/25 Complete (Rocephine 1g Inj) 17:30 Current Medications Medications (Trade) Dose Ordered Sig/Alma Route PRN Reason Start Time Stop Time Status Last Admin Dose Admin Azithromycin (Zithromax) 1,000 mg ONCE ONCE PO 01/01/25 17:30 01/01/25 17:31 DC 01/01/25 17:34 Ceftriaxone Sodium (ROCEphine 1G INJ) 1 gm ONCE ONCE IVPB 01/01/25 17:30 01/01/25 17:31 DC 01/01/25 17:32 Vital Signs Date Time Temp Pulse Resp B/P (MAP) Pulse Ox O2 Delivery O2 Flow Rate FiO2 01/01/25 18:09 98.2 84 16 152/91 97 Room Air* 0 21 01/01/25 16:38 99.0 90 16 168/90 98 Room Air* 0 21 01/01/25 16:38 99.0 90 16 168/90 97 0 Medical Decision Making MDM MDM: Differential diagnosis: Rationale: Tests considered and ordered secondary to shared decision making include: Previous outside records reviewed: Old ER visits. Risk of complication and/or morbidity or mortality of patient management: None Medications-Per medication reconciliation Need for hospitalization: Patient does not meet criteria for hospitalization. Need for emergency major/minor surgery: No There are no social concerns with this patient. Prescription drug management Prescriptions will include symptomatic care Patient's prior external medical records from other ER visits were reviewed by me as indicated. Prior testing and results from previous visits were reviewed. Prior tests were taken into account with medical decision making and resource utilization, independent historian/historians were used to obtain complete medical history. I independently interpreted the test that were performed, results were reviewed by me and considered findings on radiology if ordered. Medical management and examination interpretation discussions were had by me with other qualified healthcare professionals as indicated for the patient's care. Stable exam negative workup we will cover for GC pending GC probe, prescriptions given to treat for PID , not . Hypertension controlled here. DX & DISP Disposition: Discharge Departure Impression: Primary Impression: Acute cervicitis Condition: Stable Scripts Doxycycline Monohydrate (Doxycycline Monohydrate) 100 Mg Capsule 1 CAP PO BID for 10 Days, #20 CAP 0 Refills Prov: KRIS SCHUSTER MD 01/01/25 Referrals: TAWNY YAN MD (PCP) KRIS SCHUSTER MD January 01, 2025 18:32
[2025-01-01] MEDS ORDERED: hydrALAZine 20MG/ML VIAL IV ONE (19:00)
== END 2025-01-01 18:38 | disposition home or self-care (01) ==
LOC: EDH 16:36
DX: N72 Inflammatory disease of cervix uteri (principal); R51.9 Headache, unspecified; Z98.51 Tubal ligation status; Z98.890 Other specified postprocedural states; Z87.42 Personal history of other diseases of the female genital tract; Z79.899 Other long term (current) drug therapy
CPT/HCPCS: 99283; 96374; 80076; 80048; 83690; 85025; 87491; 87591; 81001; 81025; 36415; J0696